=== PATIENT | female | born 1985 | race Caucasian/White ===

== ENCOUNTER 2017-08-05 09:10 | Day surgery (SDC) | payer OTHER ==
[2017-08-04 14:28] VITALS: BMI 44.6
[2017-08-05 10:04] VITALS: TEMP 98.5
[2017-08-05 10:45] VITALS: BP 110/60; PULSE 76
== END 2017-08-05 11:07 | disposition home or self-care (01) ==
LOC: JASU-ENDO 09:10
PROVIDERS: ATTEND Surgery
PROC: 0DJ08ZZ Inspection of Upper Intestinal Tract, Via Natural or Artificial Opening Endoscopic (ICD-10-PCS; principal; 2017-08-05 09:00)
DX: R13.10 Dysphagia, unspecified (principal); Z01.818 Encounter for other preprocedural examination; E66.01 Morbid (severe) obesity due to excess calories
CPT/HCPCS: 84703

== ENCOUNTER 2018-01-08 07:10 | Inpatient (IN) | payer OTHER ==
[2018-01-07 09:56] VITALS: BMI 44.1
[2018-01-08] MEDS ORDERED: fentaNYL CITRATE 250 MCG/5 ML VIAL ONE (09:14)
[2018-01-08] MEDS ORDERED: MIDAZOLAM HCL 2 MG/2 ML SINGLE DOSE VIAL ONE (09:14)
[2018-01-08] MEDS ORDERED: PROPOFOL 20 ML ONE (09:14)
[2018-01-08] MEDS ORDERED: ROCURONIUM BROMIDE 50 MG/5 ML VIAL ONE (09:14)
[2018-01-08] MEDS ORDERED: DEXAMETHASONE SOD PHOSPHATE 4 MG/1 ML VIAL ONE ×2 (09:15→10:53)
[2018-01-08] MEDS ORDERED: ceFAZolin SODIUM 1 GM VIAL ONE (09:15)
[2018-01-08] MEDS ORDERED: LIDOCAINE HCL/PF 2% SDV 5ML VIAL ONE (09:15)
[2018-01-08] MEDS ORDERED: ceFAZolin SODIUM 1 GM VIAL IVPB ONE (09:49)
[2018-01-08] MEDS ORDERED: BUPIVACAINE HCL/PF (5 MG/ML) 30 ML VIAL IJ ONE (10:28)
[2018-01-08] MEDS ORDERED: NEOSTIGMINE METHYLSULFATE 0.5 MG/ML - 10 ML MDV ONE (10:53)
[2018-01-08] MEDS ORDERED: GLYCOPYRROLATE 0.2 MG/1 ML VIAL ONE (10:53)
[2018-01-08] MEDS ORDERED: HYDROmorphone HCL CARPU-JECT 1 MG/1 ML DISP.SYRIN IVPB PRN (11:09)
--- NOTE | 2018-01-08 11:14 | OP ---
Operative Note - Note: Operative Date: 01/08/18 Pre-Operative Diagnosis: Morbid obesity due to excess calories and hepatomegaly Operation: Laproscopic gastric sleeve, liver biopsy and EGD Post-Operative Diagnosis: Same as Pre-op Anesthesia: General Estimated Blood Loss (mls): 30 Fluid Volume Replaced (mls): 1,000 Operative Report Dictated: Yes
[2018-01-08] MEDS ORDERED: SODIUM CHLORIDE 1,000 ML IV SCH (11:15)
--- NOTE | 2018-01-08 11:15 | SURG ---
Surgery Casing Puller Note Casing Puller: Jefry Michelle PA-C Date of Service: 01/08/18 Diagnosis: Morbid obesity due to excess calories and hepatomegaly Procedure: Laproscopic gastric sleeve, liver biopsy, and EGD I was present for the entirety of the operative procedure. For further detail, please refer to operative report.
[2018-01-08] MEDS ORDERED: FAMOTIDINE 20 MG/50 ML IVPB 20 MG/50 ML MG IVPB ONE (11:23)
[2018-01-08] MEDS: ACETAMINOPHEN 1000 MG/100 ML VIAL (NON FORMULARY) IVPB SCH ×2 (11:25→18:53)
--- NOTE | 2018-01-08 11:26 | HP ---
Admitting History and Physical - Admission Chief Complaint: Morbid obesity History of Present Illness: Presents for vertical sleeve gastrectomy History Source: Patient Limitations to Obtaining History: No Limitations - Past Medical History ...LMP: 11/29/17 - Smoking History Smoking history: Former smoker Have you smoked in the past 12 months: No If you are a former smoker, when did you quit?: 2011 - Alcohol/Substance Use Hx Alcohol Use: No Home Medications - Allergies Allergies/Adverse Reactions: Allergies Allergy/AdvReac Type Severity Reaction Status Date / Time No Known Allergies Allergy Verified 08/04/17 14:10 - Home Medications Home Medications: Ambulatory Orders NK [No Known Home Medication] 08/04/17 Family Disease History - Family Disease History Family History: Unremarkable Review of Systems - Review of Systems Constitutional: denies: Chills, Fever HENT: reports: No Symptoms Neck: reports: No Symptoms Cardiovascular: reports: No Symptoms Respiratory: reports: No Symptoms Gastrointestinal: denies: Abdominal Pain Neurological: reports: No Symptoms Pain Intensity: 0 Physical Examination Vital Signs: Vital Signs Temperature 98.4 F 01/08/18 07:37 Pulse Rate 84 01/08/18 07:37 Respiratory Rate 20 01/08/18 07:37 Blood Pressure 109/62 01/08/18 07:37 O2 Sat by Pulse Oximetry (%) Constitutional: Yes: Calm Neck: Yes: WNL Cardiovascular: Yes: WNL Respiratory: Yes: Regular Gastrointestinal: Yes: Soft, Abdomen, Obese Neurological: Yes: Alert, Oriented Problem List - Problems (1) Morbid obesity due to excess calories Code(s): E66.01 - MORBID (SEVERE) OBESITY DUE TO EXCESS CALORIES Assessment/Plan Laparoscopic possible open vertical sleeve gastrectomy
[2018-01-08] MEDS: FAMOTIDINE 20 MG/50 ML IVPB 20 MG/50 ML MG IVPB SCH ×2 (11:30→22:55)
[2018-01-08] MEDS ORDERED: FAMOTIDINE 20 MG PREMIXED IVPB IVPB ONE (11:30)
[2018-01-08 11:49] LABS: HEMATOCRIT 38.3 % (32.4-45.2); HEMOGLOBIN 12.9 GM/dL (10.7-15.3); MCH 29.4 pg (25.7-33.7); MCHC 33.6 g/dl (32.0-36.0); MEAN CELL VOLUME 87.4 fl (80-96); MEAN PLT VOLUME 6.5 fl (7.5-11.1); PLATELET COUNT 344 K/MM3 (134-434); RBC 4.39 M/mm3 (3.60-5.2); RDW 12.9 % (11.6-15.6); WHITE BLOOD COUNT 13.2 K/mm3 (4.0-10.0)
[2018-01-08] MEDS: METOCLOPRAMIDE HCL INJECTION 10 MG/2 ML VIAL IVPUSH SCH ×2 (11:50→18:53)
[2018-01-08 12:14] LABS: ALBUMIN 3.4 g/dl (3.4-5.0); ALK PHOS 93 U/L (45-117); ANION GAP 8 (8-16); BILIRUBIN,TOTAL 0.5 mg/dL (0.2-1.0); BLOOD UREA NITROGEN 10 mg/dL (7-18); CALCIUM 8.2 mg/dL (8.5-10.1); CHLORIDE 104 mmol/L (98-107); CO2 26 mmol/L (21-32); CREATININE 0.7 mg/dL (0.55-1.02); GLUCOSE,RANDOM 133 mg/dL (74-106); POTASSIUM 4.4 mmol/L (3.5-5.1); SGOT/AST 75 U/L (15-37); SGPT/ALT 141 U/L (12-78); SODIUM 138 mmol/L (136-145); TOT PROT 7.1 g/dl (6.4-8.2)
--- NOTE | 2018-01-08 14:11 | SPEC ---
DATE OF OPERATION: 01/08/2018 SURGEON: Bladimir Cummings MD HAND I TUBE BENDER: Jefry Michelle PA-C PREOPERATIVE DIAGNOSIS: 1. Morbid obesity. 2. Body mass index of 44.1. POSTOPERATIVE DIAGNOSIS: 1. Morbid obesity. 2. Body mass index of 44.1. 3. Hepatomegaly PROCEDURE: 1. Laparoscopic vertical sleeve gastrectomy. 2. Laparoscopic wedge liver biopsy. 3. Esophagogastroduodenoscopy. SPECIMEN: 1. Greater curvature of the stomach. 2. Liver biopsy ESTIMATED BLOOD LOSS: 30 mL. DRAINS: None. ANESTHESIA: GET. BOUGIE SIZE: 36-[place]. REASON FOR PROCEDURE: This is a 32-year-old female who presents for weight loss options. After describing different options, she decided to proceed with a laparoscopic, possible open vertical sleeve gastrectomy, possible liver biopsy, and upper endoscopy. RISKS AND BENEFITS: After describing the different options for weight loss management, the patient decided to proceed with a laparoscopic, possible open vertical sleeve gastrectomy. The patient was seen by the respective subspecialties and cleared for surgery. The risks and benefits of the procedure were explained. These included bleeding, infection, hernia, MN, DVT, PE, injury to surrounding structures including the liver, colon, bowel, spleen, esophagus, vessel injury, nerve injury, weight regain, gastric leak, staple line leak, sleeve leak, obstruction, vitamin deficiency, hair loss and as some of the possible complications. The patient understood and signed informed consent. DESCRIPTION OF PROCEDURE: The patient was placed supine on the operating room table. The patient underwent general endotracheal intubation. The arms were brought out at 90 degrees and secured. A footboard was placed and the legs were secured laterally with padding. The abdomen was prepped and draped in the usual sterile fashion. A timeout was performed. An incision was made in the left upper quadrant and a Veress needle inserted. Pneumoperitoneum was established. Subsequently, the Veress needle was removed and a 5-mm trocar was placed under direct visualization with the laparoscope. The laparoscopic camera was then inserted and inspection of the abdominal cavity was performed. An incision was then made in the supraumbilical area and a 15-mm trocar was placed under direct visualization. A 5-mm trocar was then placed in the right upper quadrant and a 5-mm trocar was placed below the left subcostal margin. A stab wound was made in the subxiphoid area and a Aleksandra clamp inserted and removed to dilate the tract. A Mauricio liver retractor was inserted. The post was secured at the bedside by the nursing staff. The patient was placed in steep reverse Trendelenburg position and the Mauricio liver retractor was used to secure the liver towards the anterior abdominal wall. The pylorus was identified and 6 cm proximal to it, the lesser sac was entered using the LigaSure device. All lateral attachments to the greater curvature of the stomach, including the short gastric vessels, were ligated using the LigaSure device toward the gastrosplenic and gastrophrenic ligaments. Once this was done in its entirety, it was confirmed that all tubes within the nasal or oropharyngeal cavity, including a temperature probe, was removed by Anesthesia. The bougie was then inserted by Anesthesia. Transection of the stomach was then begun staying adjacent to the bougie but away from the angularis. Transection of the stomach was performed near the portion of the stomach where the lesser sac was entered. Two laparoscopic Endo-CECILIO black mj were used at this location. Laparoscopic Endo CECILIO purple staple loads were then used for the remainder of the transection until the greater curvature of the stomach was fully transected. This was done staying close to the bougie. Care was taken to stay away from the angle of His cephalad. The staple line was then inspected. Hemostasis was identified. A leak test was then performed. It was clamped distally to the staple line. Irrigation solution was placed in the left upper quadrant and air was insufflated by Anesthesia into the sleeve. No leaks were identified. No obstruction was identified. This was done through the entirety of the staple line. In addition, an upper endoscopy was performed. The endoscope was placed into the patients mouth and the entirety of the esophagus, GE junction, gastric pouch and staple line were inspected. No obstruction or leak was noted. The stomach was suctioned and the endoscope removed fully intact. At this point, the irrigation solution was suctioned and again, hemostasis was noted. A wedge liver biopsy was then performed. The left lobe of the liver was identified and a portion of the edge was grasped. Using electrocautery, a wedge of the liver was excised. This was removed and sent off the field as specimen. Hemostasis at the site of the wedge liver biopsy was attained using electrocautery. The 15-mm supraumbilical trocar was then removed and the greater curvature specimen removed from the site using a sponge stick patel. The specimen was inspected and a Veress needle inserted. The specimen insufflated adequately and no leak was identified. The staple line was noted to be intact. A Johan-Beau device was then used to close the fascia with a 0 Vicryl suture at the site. Again, hemostasis was noted. The Mauricio liver retractor was then removed under direct visualization. Pneumoperitoneum was desufflated and the fascial sutures were secured. Hemostasis was noted at all incision sites and Marcaine was injected at all incision sites. All incision sites were closed using 4-0 Biosyn. Sterile dressings were applied. The patient tolerated the procedure well and was transferred to the recovery room in stable condition. The patient was transferred to telemetry for further monitoring. Cherry GONCALVES/[id number]
[2018-01-08] MEDS: ONDANSETRON 4 MG/2 ML VIAL IVPUSH SCH ×3 (14:36→21:36)
[2018-01-08] MEDS ORDERED: morphine SULFATE 4 MG/ML VIAL IVPUSH PRN (15:01)
[2018-01-08] MEDS: ENOXAPARIN NA (PORCINE) 40 MG/0.4 ML DISP.SYRIN SQ SCH (21:35)
[2018-01-09] MEDS: METOCLOPRAMIDE HCL INJECTION 10 MG/2 ML VIAL IVPUSH SCH ×2 (00:39→06:14)
[2018-01-09] MEDS: ONDANSETRON 4 MG/2 ML VIAL IVPUSH SCH ×3 (00:42→10:39)
[2018-01-09] MEDS: ACETAMINOPHEN 1000 MG/100 ML VIAL (NON FORMULARY) IVPB SCH ×2 (00:42→06:15)
[2018-01-09 06:55] LABS: HEMATOCRIT 33.4 % (32.4-45.2); HEMOGLOBIN 11.7 GM/dL (10.7-15.3); MCHC 35.1 g/dl (32.0-36.0); MEAN CELL VOLUME 85.5 fl (80-96); MEAN PLT VOLUME 6.8 fl (7.5-11.1); PLATELET COUNT 300 K/MM3 (134-434); RDW 12.5 % (11.6-15.6); WHITE BLOOD COUNT 10.8 K/mm3 (4.0-10.0)
[2018-01-09 07:09] LABS: ANION GAP 9 (8-16); BLOOD UREA NITROGEN 8 mg/dL (7-18); CALCIUM 8.1 mg/dL (8.5-10.1); CHLORIDE 103 mmol/L (98-107); CO2 24 mmol/L (21-32); CREATININE 0.6 mg/dL (0.55-1.02); GLUCOSE,RANDOM 106 mg/dL (74-106); POTASSIUM 4.2 mmol/L (3.5-5.1); SGOT/AST 47 U/L (15-37); SGPT/ALT 113 U/L (12-78); SODIUM 136 mmol/L (136-145)
[2018-01-09 07:11] LABS: ALK PHOS 81 U/L (45-117); BILIRUBIN,TOTAL 0.7 mg/dL (0.2-1.0); TOT PROT 6.5 g/dl (6.4-8.2)
--- NOTE | 2018-01-09 09:17 | PN ---
Progress Note, Physician Chief Complaint: s/p lap gastric sleeve History of Present Illness: under general anesthesia post op day one - Current Medication List Current Medications: Active Medications Enoxaparin Sodium (Lovenox -) 40 mg SQ BID [facility] Last Admin: 01/08/18 21:35 Dose: 40 mg Famotidine/Sodium Chloride (Pepcid 20 Mg Premixed Ivpb -) 20 mg in 50 mls @ 100 mls/hr IVPB BID [facility] Last Admin: 01/08/18 22:55 Dose: 100 mls/hr Sodium Chloride (Normal Saline -) 1,000 mls @ 150 mls/hr IV ASDIR [facility] Last Admin: 01/08/18 15:30 Dose: 0 mls Metoclopramide HCl (Reglan Injection -) 10 mg IVPUSH Q6H [facility] Last Admin: 01/09/18 06:14 Dose: 10 mg Morphine Sulfate (Morphine Sulfate) 4 mg IVPUSH Q4H PRN PRN Reason: PAIN LEVEL 6-10 Last Admin: 01/08/18 18:53 Dose: 4 mg Ondansetron HCl (Zofran Injection) 4 mg IVPUSH Q4H [facility] Last Admin: 01/09/18 04:59 Dose: 4 mg - Objective Vital Signs: Vital Signs Temperature 99.1 F 01/09/18 06:00 Pulse Rate 101 H 01/09/18 06:00 Respiratory Rate 18 01/09/18 06:00 Blood Pressure 103/48 01/09/18 06:00 O2 Sat by Pulse Oximetry (%) 96 01/08/18 21:00 Constitutional: Yes: Well Nourished Cardiovascular: Yes: WNL Respiratory: Yes: WNL Gastrointestinal: Yes: WNL Labs: CBC, BMP 01/09/18 05:30 01/09/18 05:30 Assessment/Plan No adverse effect of anesthesia pain controlled, no nausea or vomiting. Dept of anesthesia will sign off care at this time.
[2018-01-09 09:54] VITALS: BP 107/63; PULSE 88; TEMP 98.9
[2018-01-09] MEDS: ENOXAPARIN NA (PORCINE) 40 MG/0.4 ML DISP.SYRIN SQ SCH (10:38)
[2018-01-09] MEDS ORDERED: oxyCODONE HCL 5 MG TABLET PO PRN (11:19)
[2018-01-09] MEDS ORDERED: SODIUM CHLORIDE 1,000 ML IV SCH (11:30)
--- NOTE | 2018-01-09 12:25 | PN ---
Progress Note (short form) - Note Progress Note: POD #1 Alert. Doing well. No acute events since surgery. OOB and ambulating without difficulty. Voiding spontaneously. Denies n/v/f/c, CP or SOB. Last Vital Signs Temp Pulse Resp BP Pulse Ox 98.9 F 88 18 107/63 96 06//18 09:52 01/09/18 09:52 01/09/18 09:52 01/09/18 09:52 01/08/18 21:00 CBC, BMP 01/09/18 05:30 01/09/18 05:30 UGI /: no leak, extravasation or gastric outlet obstruction Gen: nad ABD: all surgical ports c/d/i LE: SCDs bilat. Soft. NT Problem List - Problems (1) Morbid obesity due to excess calories Assessment/Plan: POD #1 s/p lap sleeve with liver bx and egd Start bariatric stage 1 protocol DC home later today if tolerates Code(s): E66.01 - MORBID (SEVERE) OBESITY DUE TO EXCESS CALORIES
--- NOTE | 2018-01-09 16:19 | PATH ---
Surgical Pathology Report Patient Name: STELLA MARLEY [facility]. Rec. #: [id number] /Age/Gender: 1985 (Age: 32) / F Account: [id number] Location: 4 W TELEMETRY U Taken: 01/08/2018 Received: 01/08/2018 Reported: 01/09/2018 Physicians: Bladimir Cummings M.D. Specimen(s) Received A: GREATER CURVATURE STOMACH B: LIVER BIOPSY Clinical History Morbid obesity Final Diagnosis A. STOMACH, GREATER CURVATURE, LAPAROSCOPIC VERTICAL SLEEVE GASTRECTOMY: PORTION OF STOMACH WITH MODERATE CHRONIC GASTRITIS. IMMUNOHISTOCHEMICAL STAIN FOR H. PYLORI IS NEGATIVE. B. LIVER, BIOPSY: MILD STEATOHEPATITIS, SEVERE STEATOSIS (~75%). 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 SEE COMMENT. Comment: The liver parenchyma demonstrates severe mixed macro and microvesicular steatosis (~75%). Focal mild mixed inflammatory infiltrate is seen within portal tracts and some lobules. No significant bile injury is seen. No granulomas are present. Focal hepatocyte ballooning is noted. No definitive Tamika hyaline is identified. The trichrome stain highlights mild perivenular, mild perisinusoidal, mild portal and periportal fibrosis. No increase in iron by Iron special stain. Overall, findings show mild steatohepatitis and severe steatosis; stage 1 of 4 (Brunt). Etiologies include alcohol and alcoholic liver injury including metabolic conditions, drug or toxin injury. Suggest clinical and serologic correlation. Electronically Signed Samantha Rivero M.D. Gross Description A. Received in formalin, labeled "greater curvature of stomach," is an 84 gram, 17.5 x 3.0 x 2.3 cm. portion of stomach with a stapled margin of resection. The serosa is devine-benson with minimal attached fat. The mucosa is devine-pink with normal folds. No mucosal masses are identified. Repairer [employer] sections are submitted in one cassette. B. Received in formalin labeled "liver biopsy" is a 2.0 x 1.3 x 0.5 devine firm irregular portion of soft tissue, consistent with a portion of liver. The specimen is bisected and entirely submitted in one cassette. /01/08/2018 saudi01/08/2018
== END 2018-01-09 13:55 | disposition home or self-care (01) | DRG 403 ==
LOC: JSAMEDAYSX 07:10 → J4W 16:09
PROVIDERS: ADMIT Surgery; ATTEND Surgery
PROC: 0DB64Z3 Excision of Stomach, Percutaneous Endoscopic Approach, Vertical (ICD-10-PCS; principal; 2018-01-08 09:00)
PROC: 0FB24ZX Excision of Left Lobe Liver, Percutaneous Endoscopic Approach, Diagnostic (ICD-10-PCS; 2018-01-08 09:00)
PROC: 0DJ08ZZ Inspection of Upper Intestinal Tract, Via Natural or Artificial Opening Endoscopic (ICD-10-PCS; 2018-01-08 09:00)
DX: E66.01 Morbid (severe) obesity due to excess calories (principal); R16.0 Hepatomegaly, not elsewhere classified; Z68.41 Body mass index [BMI] 40.0-44.9, adult; Z87.891 Personal history of nicotine dependence
CPT/HCPCS: 36415; 74241-TC-FY; 80053; 84703; 85027; 86850; 86900; 86901; 88307-TC; 94010; 94760; J0131; J7030